=== PATIENT | female | born 1940 | race Caucasian/White ===

== ENCOUNTER 2025-02-02 05:54 | Emergency (ER) | payer OTHER, SELFPAY ==
[2025-02-02 06:03] VITALS: BP 116/74
[2025-02-02 06:20] VITALS: BMI 24.9
[2025-02-02 06:38] VITALS: BP 132/71
--- NOTE | 2025-02-02 06:39 | ED.GENMED ---
History of Present Illness
General
Chief Complaint: Heart Rate Problem
Time Seen by Provider: 02/02/25 06:20
History of Present Illness
History of Present Illness:
84-year-old female with history of hypertension presenting to the emergency department for palpitations. Patient reports that she woke up around 130 this morning, did not feel well felt some fluttering in her chest. Notes about 2 weeks ago she was
not feeling well, went to her primary care doctor who thought that she may have atrial fibrillation, however did not EKG and no evidence of atrial fibrillation. Patient denies any significant cardiac history. Denies chest pain or difficulty
breathing. Denies fever or recent illness. Notes that she has been feeling more exhausted and fatigued. Denies abdominal pain or GI complaints. Denies additional acute medical complaints
Past History
Past History
ED Past Medical History: HTN and Other (M�ni�re's disease, hiatal hernia)
ED Past Surgical History: Cholecystectomy and Gynecological
Social History
Tobacco: Non-smoker
Alcohol: None
Personal:
Living: with family
Family History
Family History: Negative Diabetes, Hypertension or CAD
Phy Exam
Physical Exam
Physical Exam:
General: Well-appearing, no clinical signs of dehydration, nontoxic and in no acute distress
HEENT: protecting airway
Neck: appears supple
CV: Normal heart rate, regular rhythm
Resp: No accessory muscle use, no increased work of breathing, lungs clear to auscultation bilaterally
Abd: No distention
Extremities: No deformities, no swelling, no erythema
Neuro: alert, no focal neurologic deficit
: deferred
Rectal: deferred
Psych: Normal affect
Skin: Intact
Course
Orders/Labs/Results
Orders:
Orders
02/02/25 06:11
Electrocardiogram (*1) Urgent
Reason for Study: Other
Other Reason for Exam: Respiratory Distress
Cardiac Monitoring- Treatment ONCE
EKG- Treatment ONCE
IV Insert/Care/Rem.- Treatment PRN
CR Chest - 2 Views Urgent
Comment:
Reason For Exam: respiratory distress
O2 Therapy [RESP] Urgent
Titrate/Wean O2 to maintain O2 sat greater than (%): 93
Special Instructions: TO MAINTAIN CONTINUOUS O2 SATS >/= 93%
Pulse Ox/cont/shift [RESP] Urgent
Quantity: 1
Special Instructions: continuous pulse ox
02/02/25 06:40
Complete Blood Count/With Diff Urgent
Comprehensive Metabolic Panel Urgent
NT-proBNP Urgent
Troponin I Urgent
Abnormal Lab Results
02/02/25
06:40
WBC 4.5 L 10^3/uL
(4.8-10.8)
MCH 31.1 H pg
(27.0-31.0)
Glucose 102 H mg/dl
(70-99)
Total Protein 6.0 L g/dl
(6.3-8.2)
02/02/25 06:40
02/02/25 06:40
Vital Signs
Initial and Last Documented VS:
Initial Vital Signs
Temp Pulse Resp BP Pulse Ox
97.8 F 77 20 116/74 99
02/02/25 06:03 02/02/25 06:03 02/02/25 06:03 02/02/25 06:03 02/02/25 06:03
Last Documented Vital Signs
Temp Pulse Resp BP Pulse Ox
97.8 F 61 12 111/69 96
02/02/25 06:03 02/02/25 07:30 02/02/25 07:30 02/02/25 07:00 02/02/25 07:30
MDM/Problems Addressed
MDM/Problems Addressed:
84-year-old female with past very of hypertension presenting for fluttering sensation in her chest. Vital signs on arrival are normal.
On exam, patient is resting comfortably, no acute distress, currently asymptomatic. EKG obtained on arrival, sinus rhythm with PACs. No evidence of A-fib or arrhythmia. Suspect that patient may be symptomatic from PACs. She is hemodynamically
stable. No signs of volume overload on exam without concern for CHF. No report of chest pain without concern for ACS, nonischemic EKG. Patient does note that she has been more fatigued as of recent. Will screen with laboratory analysis. Will
continue to monitor.
08:15 -Labs are unremarkable. Chest x-ray without acute cardiopulmonary disease. On reassessment patient remained stable. Feel stable for discharge, however given patient's presenting symptoms, feel warrants outpatient cardiology follow-up for
potential Holter monitoring. Return precautions discussed and patient verbalized understanding
*Pulse Oximetry
SaO2: 99
Oxygen Mode of Delivery: Room air
Patient hypoxic: no
*Critical Care Note
Total Time (30-74mins, 75-104mins- exclusive of procedures): Not Applicable
ED Attending Note
-
Portions of this chart may have been created with voice recognition software.� Occasional wrong word or��sound alike� substitutions may have occurred due to the inherent limitations of voice recognition software.
Discharge Plan
Departure
Patient Disposition: Home (Routine Discharge)
Date of Disposition: 02/02/25
Time of Disposition: 08:14
Patient with high blood pressure during this ER visit?: No
Condition: Good
Discharge Problem:
Heart palpitations
Instructions: Palpitations (DC)
Prescriptions:
No Action
ascorbic acid (vitamin C) [Vitamin C] 1,000 mg Tablet
1,000 mg PO DAILY
Acidophilus Tablet
1 tab PO DAILY
cranberry 500 mg Capsule
30,000 mg PO DAILY
valsartan 80 mg Tablet
80 mg PO DAILY
omeprazole 20 mg Capsule,Delayed Release(Dr/Ec)
20 mg PO DAILY
hydrochlorothiazide 25 mg Tablet
25 mg PO DAILY
sertraline 50 mg Tablet
50 mg PO DAILY
coenzyme Q10 [Co Q-10] 100 mg Capsule
100 mg PO DAILY
vitamin D77-rmosu acid 1,000-400 mcg Tablet, Sublingual
1 tab SUBLINGUAL DAILY
turmeric 400 mg Capsule
400 mg PO DAILY
Vitamin D3
1 tab PO DAILY
Referrals:
Gabriel Stone MD [Active, Cardiology]
Activity Restrictions/Additional Instructions:
You were seen in the emergency department for palpitations
You were found to have reassuring EKG and laboratory analysis. We recommend that you follow-up with a airconditioning drafting officer.
Please follow-up closely with your primary care physician.
Return to the emergency department for any worsening of your symptoms, or any development of chest pain, difficulty breathing, abdominal pain with persistent vomiting and inability to tolerate food or liquid by mouth (concern for dehydration),
weakness, headache or confusion, fever greater than 100.4, or any additional symptoms that are concerning to you.
Thank you for choosing [facility].
Interventions
Interventions:
*Risk Screen - Suicide Last Done: 02/02/25 06:03
*General Assessment Last Done: 02/02/25 06:03
*Neglect/Abuse Screening Last Done: 02/02/25 06:03
*ED- Fall Risk Assessment Last Done: 02/02/25 06:03
*ED COVID-19 Vaccine History Last Done: 02/02/25 06:03
ED- Cardiac Assessment Last Done: 02/02/25 06:15
ED- Pulmonary Assessment Last Done: 02/02/25 06:15
Discharge Date and Time
Print Language: ARMENIAN
[2025-02-02 07:00] VITALS: BP 111/69
[2025-02-02 07:04] LABS: % Basophils 0.4 % (0-2); % Eosinophils 1.3 % (0-6); % Immature Granulocytes 0.2 % (0-0.5); % Lymphocytes 28.7 % (20.5-51.1); % Monocytes 9.1 % (1.7-9.3); % Neutrophils 60.3 % (42.2-75.2); Absolute Eosinophils 0.1 10^3/uL (0-0.7); Absolute Lymphocytes 1.3 10^3/uL (1.2-3.4); Absolute Monocytes 0.4 10^3/uL (0.1-0.6); Absolute Neutrophils 2.7 10^3/uL (1.4-6.5); Hematocrit 42.9 % (37.0-47.0); Hemoglobin 14.8 g/dL (12.0-16.0); Mean Corp Hgb Conc. 34.5 g/dL (33.0-37.0); Mean Corpuscular Hgb 31.1 pg (27.0-31.0); Mean Corpuscular Volume 90.1 fL (81.0-99.0); Mean Platelet Volume 9.2 fL (7.4-10.4); Nucleated Red Blood Cells % 0 %; Platelet Count 154 10^3/uL (130-400); Red Blood Cell Count 4.76 10^6/uL (4.20-5.40); Red Cell Dist. Width 13.2 % (11.5-14.5); White Blood Cell Count 4.5 10^3/uL (4.8-10.8)
[2025-02-02 07:18] LABS: ALT (SGPT) 13 U/L (0-35); AST (SGOT) 20 U/L (14-36); Albumin 3.8 g/dl (3.5-5.0); Alkaline Phosphatase 44 U/L (38-126); Blood Urea Nitrogen 16 mg/dl (7-17); Carbon Dioxide 30 mmol/L (22-30); Chloride 107 mmol/L (98-107); Estimated Creatinine Clearance 40 ml/min; Glucose 102 mg/dl (70-99); Sodium 141 mmol/L (135-145); Total Bilirubin 0.9 mg/dl (0.2-1.3); eGFR > 60.00
[2025-02-02 07:30] LABS: NT-proBNP 721 pg/ml; Troponin I < 0.012 ng/ml
[2025-02-02 08:00] VITALS: BP 110/61
== END 2025-02-02 08:48 | disposition home or self-care (01) ==
LOC: EMR 05:54
PROVIDERS: Emergency Medicine; EMERGENCY PHYSICIAN Student in an Organized Health Care Education/Training Program; FAMILY PHYSICIAN Family Medicine
DX: R00.2 Palpitations (principal); I49.1 Atrial premature depolarization; I10 Essential (primary) hypertension; Z90.49 Acquired absence of other specified parts of digestive tract
CPT/HCPCS: 99285; 71046; 80053; 83880; 84484; 85025; 93005

== ENCOUNTER 2025-03-16 12:30 | Emergency (ER) | payer OTHER, SELFPAY ==
[2025-03-16] VITALS (18 sets, daily range): BP systolic 102–133; BP diastolic 51–91; BMI 24.1
[2025-03-16 18:50] LABS: Hematocrit 40.5 % (37.0-47.0); Hemoglobin 14.4 g/dL (12.0-16.0); Mean Corp Hgb Conc. 35.6 g/dL (33.0-37.0); Mean Corpuscular Volume 87.9 fL (81.0-99.0); Platelet Count 156 10^3/uL (130-400); Red Cell Dist. Width 13.2 % (11.5-14.5)
--- NOTE | 2025-03-16 19:09 | ED.GENMED ---
History of Present Illness
General
Chief Complaint: Dizziness
Source: patient and family
Time Seen by Provider: 03/16/25 13:00
History of Present Illness
History of Present Illness:
84-year-old female who suffered a fall described as stumbling while in the garden approximately 8 weeks ago. She did not have loss of consciousness and denies preceding symptoms to the fall such as chest pain or palpitations. She did note a mild
headache after the fall but this was resolved with 1 dose of [id number] pain medication. However, since that time, she has been noted to have increasing fatigue associated with dizziness. She describes the dizziness as 'not spinning', but
rather feeling kind of lightheaded and shaking her legs. She has not had any further falls since 8 weeks ago. She has been managed by her primary care doctor through the symptoms, and as recently as yesterday was advised to discontinue her
diuretic. She denies associated neck pain, visual changes, numbness, tingling, focal weakness, change in speech, change in vision, anorexia, nausea, vomiting, swelling, or other complaints patient does have an appointment for an outpatient MRI
which is scheduled but not yet performed.
Past History
Past History
ED Past Medical History: HTN and Other (M�ni�re's disease, hiatal hernia)
ED Past Surgical History: Cholecystectomy and Gynecological
Social History
Tobacco: Non-smoker
Alcohol: None
Drug: None
Personal:
Living: with family
Family History
Family History: Negative Diabetes, Hypertension or CAD
Phy Exam
Physical Exam
Physical Exam:
GENERAL: Alert , in no apparent distress
EYE: pupils equal and reactive, EOMI, no nystagmus, no photophobia
NECK: Supple, no significant adenopathy, no midline tenderness.
ENT: o/p clr, mmm.
CARDIAC: Regular rate and rhythm .
LUNGS: Clear breath sounds bilaterally, no acute respiratory distress, no wheezes/rales/rhonchi
ABDOMEN: Soft, without focal tenderness, no r/g, no cvat
NEUROLOGICAL: Alert and oriented, no focal neuro deficits, [id number], motor 5 out of 5, sensory intact, cranial nerves II through XII intact
SKIN: Warm and dry, skin intact.
MUSCULOSKELETAL: No edema, well perfused.
PSYCH: Normal and appropriate interaction.
Course
Orders/Labs/Results
Orders:
Orders
03/16/25 12:32
Electrocardiogram (*1) Urgent
Reason for Study: Vertigo / Dizzy
EKG- Treatment ONCE
03/16/25 18:33
CT Head W/o Iv Contrast Urgent
Comment:
Reason For Exam: dizzy
Cardiac Monitoring- Treatment ONCE
Pulse Ox/cont/shift [RESP] Stat
Quantity: 1
03/16/25 18:38
Complete Blood Count/No Diff Urgent
Comprehensive Metabolic Panel Urgent
Troponin I Urgent
03/16/25 18:40
Urinalysis Reflex To Culture Urgent
Date Specimen was Collected: 03/16/25
Time Specimen was Collected: 18:39
Urine Microscopic Reflex Cult Urgent
Abnormal Lab Results
03/16/25 03/16/25
18:38 18:40
MCH 31.2 H pg
(27.0-31.0)
Potassium 3.2 L mmol/L
(3.5-5.1)
Carbon Dioxide 31 H mmol/L
(22-30)
BUN 18 H mg/dl
(7-17)
Glucose 121 H mg/dl
(70-99)
Total Protein 5.9 L g/dl
(6.3-8.2)
Urine Bacteria (Reflex) Few A
(Negative)
Urine Albumin (Reflex) 1+ A
(Neg - Trace)
03/16/25 18:38
03/16/25 18:38
Vital Signs
Initial and Last Documented VS:
Initial Vital Signs
Temp Pulse Resp BP Pulse Ox
97.5 F 69 16 122/72 97
03/16/25 12:33 03/16/25 12:33 03/16/25 12:33 03/16/25 12:33 03/16/25 12:33
Last Documented Vital Signs
Temp Pulse Resp BP Pulse Ox
98 F 67 21 115/64 98
03/16/25 17:30 03/16/25 19:01 03/16/25 19:01 03/16/25 19:01 03/16/25 19:14
*Pulse Oximetry
SaO2: 98
Oxygen Mode of Delivery: Room air
Patient hypoxic: no
*Critical Care Note
Total Time (30-74mins, 75-104mins- exclusive of procedures): Not Applicable
Update Note
Update Note:
Patient presents to the Emergency Department with ___dizziness and fatigue
Number and Complexity of Problems Addressed at the Encounter
� Chronic conditions affecting care:
� Acute Exacerbation and/or Progression of Chronic Illness:
� Differential Diagnosis includes: But not limited to UTI, electrolyte disorder, subdural hematoma, etc.
Amount and/or Complexity of Data to be Reviewed and Analyzed
� I performed an independent evaluation of and my interpretation is:
EKG: Read by me, normal sinus rhythm, nonspecific T wave flattening, no acute ischemia
CT:head ct nad
Xrays:
Laboratory Studies: Generally unremarkable
Other:
� Review of other/old records reveals:
� Clinical information was obtained by an independent historian: Daughter who is bedside
� Prescriptions/Medications Considered but not given:
� Further testing considered but not performed:
Risk of Complications and/or Morbidity or Mortality of Patient Management
� Social determinants of health affecting care:
� Discussion with other providers (PCP, Hospitalists, Consultants, etc):
� Escalation of care including admission/observation vs risk of discharge considered: No specific etiology for symptoms of ongoing dizziness and episodes of confusion noted here. Patient is awake alert pleasant well-appearing.
Discussed with daughter who is at bedside importance of close follow-up and reasons return to the ER immediately.
ED Attending Note
-
Portions of this chart may have been created with voice recognition software.� Occasional wrong word or��sound alike� substitutions may have occurred due to the inherent limitations of voice recognition software.
Discharge Plan
Departure
Patient Disposition: Home (Routine Discharge)
Date of Disposition: 03/16/25
Time of Disposition: 21:22
Patient with high blood pressure during this ER visit?: Yes
Condition: Good
Discharge Problem:
Dizziness
Instructions: Dizziness, BLOOD PRESSURE
Prescriptions:
No Action
ascorbic acid (vitamin C) [Vitamin C] 1,000 mg Tablet
1,000 mg PO DAILY
Acidophilus Tablet
1 tab PO DAILY
cranberry 500 mg Capsule
30,000 mg PO DAILY
valsartan 80 mg Tablet
80 mg PO DAILY
omeprazole 20 mg Capsule,Delayed Release(Dr/Ec)
20 mg PO DAILY
hydrochlorothiazide 25 mg Tablet
25 mg PO DAILY
sertraline 50 mg Tablet
50 mg PO DAILY
coenzyme Q10 [Co Q-10] 100 mg Capsule
100 mg PO DAILY
vitamin I50-jtduv acid 1,000-400 mcg Tablet, Sublingual
1 tab SUBLINGUAL DAILY
turmeric 400 mg Capsule
400 mg PO DAILY
Vitamin D3
1 tab PO DAILY
Referrals:
Jose Luis Snell MD [Family Provider, Family Practice] - Follow up in 2-3 days
Activity Restrictions/Additional Instructions:
YOU WORKUP HERE WAS GENERALLY UNREMARKABLE TONIGHT. IS VERY IMPORTANT THAT YOU SEE YOUR DOCTOR IN CLOSE FOLLOW-UP TO FURTHER INVESTIGATE THE REASONS FOR YOUR DIZZINESS. IF YOU DEVELOP NUMBNESS, WEAKNESS OF AN ARM OR LEG, CHANGE IN SPEECH, CHANGE
IN VISION, SEVERE HEADACHE, NECK PAIN, OR OTHER WORRISOME SIGNS, PLEASE RETURN TO THE ER IMMEDIATELY!
Interventions
Interventions:
*Risk Screen - Suicide Last Done: 03/16/25 12:33
*General Assessment Last Done: 03/16/25 12:33
*Neglect/Abuse Screening Last Done: 03/16/25 12:33
*ED- Fall Risk Assessment Last Done: 03/16/25 13:33
ED- Neurological Assessment Last Done: 03/16/25 13:33
ED- Cardiac Assessment Last Done: 03/16/25 13:33
ED Swallowing Screen Last Done: 03/16/25 13:33
Discharge Date and Time
Print Language: KAZAKH
[2025-03-16 19:10] LABS: ALT (SGPT) 11 U/L (0-35); AST (SGOT) 18 U/L (14-36); Albumin 3.8 g/dl (3.5-5.0); Alkaline Phosphatase 42 U/L (38-126); Blood Urea Nitrogen 18 mg/dl (7-17); Calcium 10.0 mg/dl (8.4-10.2); Carbon Dioxide 31 mmol/L (22-30); Chloride 105 mmol/L (98-107); Estimated Creatinine Clearance 40 ml/min; Glucose 121 mg/dl (70-99); Potassium 3.2 mmol/L (3.5-5.1); Sodium 139 mmol/L (135-145); Total Protein 5.9 g/dl (6.3-8.2); eGFR > 60.00
[2025-03-16 19:22] LABS: Urine Character Clear (Clear)
[2025-03-16 19:23] LABS: Troponin I < 0.012 ng/ml
[2025-03-16 19:31] LABS: Urine Red Blood Cell 0-2 /HPF (0-2); Urine Squamous Cell >30 /LPF (Few)
== END 2025-03-16 21:57 | disposition home or self-care (01) ==
LOC: EMR 12:30
PROVIDERS: EMERGENCY PHYSICIAN Emergency Medicine; FAMILY PHYSICIAN Family Medicine
DX: R42 Dizziness and giddiness (principal); R41.0 Disorientation, unspecified; R53.83 Other fatigue; I10 Essential (primary) hypertension; K44.9 Diaphragmatic hernia without obstruction or gangrene; Z91.81 History of falling; Z90.49 Acquired absence of other specified parts of digestive tract; Z88.1 Allergy status to other antibiotic agents; Z88.0 Allergy status to penicillin; Z88.2 Allergy status to sulfonamides
CPT/HCPCS: 99285; 70450; 80053; 81003; 81015; 84484; 85027; 93005

== ENCOUNTER 2025-04-05 12:14 | Outpatient (RCR) | payer OTHER, SELFPAY | END 2025-04-05 23:59 | disposition home or self-care (01) | LOC: RPT 12:14 | PROVIDERS: ATTENDING PHYSICIAN Family Medicine | DX: R26.89 Other abnormalities of gait and mobility (principal); Z73.6 Limitation of activities due to disability; R42 Dizziness and giddiness; R53.83 Other fatigue; Z91.81 History of falling | CPT/HCPCS: 97110; 97162; 97530 ==

== ENCOUNTER 2025-04-09 21:57 | Observation (INO) | payer OTHER, SELFPAY ==
[2025-04-09] VITALS (12 sets, daily range): BP systolic 106–150; BP diastolic 57–81
[2025-04-09 16:50] LABS: Hematocrit 38.9 % (37.0-47.0); Hemoglobin 13.4 g/dL (12.0-16.0); Mean Corp Hgb Conc. 34.4 g/dL (33.0-37.0); Mean Corpuscular Volume 88.8 fL (81.0-99.0); Nucleated Red Blood Cells % 0 %; Platelet Count 159 10^3/uL (130-400); Red Cell Dist. Width 13.8 % (11.5-14.5)
--- NOTE | 2025-04-09 17:00 | ED.GENMED ---
History of Present Illness
General
Chief Complaint: Fainting/Passed Out
Source: patient
Exam Limitations: none
Time Seen by Provider: 04/09/25 16:19
Nursing documentation reviewed up to this point in time: agreed with
History of Present Illness
History of Present Illness:
84-year-old female past medical history of atrial fibrillation not currently anticoagulated hypertension presented to the emergency department after she had an episode where she was gardening felt lightheaded and fell to the ground does not have
memory of the fall specifically but woke up with some scrapes to the side of her face on the right side and some mild neck pain. Upon awakening she was able to crawl over to a bench set up and then came to the ER. She does have a loop recorder
currently in place from cardiology with concerns of intermittent palpitations potential paroxysmal atrial fibrillation. She denies any chest pain or palpitations associated with the episode today. No significant symptoms currently other than some
mild discomfort of the right side of her face. No numbness weakness abdominal pain.
Past History
Past History
ED Past Medical History: HTN and Other (M�ni�re's disease, hiatal hernia)
ED Past Surgical History: Cholecystectomy and Gynecological
Social History
Tobacco: Non-smoker
Alcohol: None
Drug: None
Personal:
Living: with family
Family History
Family History: Negative Diabetes, Hypertension or CAD
Review of Systems
Review of Systems
Allergies reviewed?: Yes
All Other Systems: ROS reviewed and negative except as documented in HPI and ROS
Phy Exam
Physical Exam
Physical Exam:
GENERAL: Alert , in no apparent distress
EYE: pupils equal and reactive normal extraocular movements
NECK: Supple, no significant adenopathy.
ENT: Superficial abrasions to the right side of the face, o/p clr, mmm.
CARDIAC: Regular rate and rhythm .
LUNGS: Clear breath sounds bilaterally, no acute respiratory distress, no wheezes/rales/rhonchi
ABDOMEN: Soft, without focal tenderness, no r/g, no cvat
NEUROLOGICAL: Alert and oriented, no focal neuro deficits
SKIN: Warm and dry, skin intact.
MUSCULOSKELETAL: No edema, well perfused.
PSYCH: Normal and appropriate interaction.
Course
Orders/Labs/Results
Orders:
Orders
04/09/25 15:53
ECG [Electrocardiogram (*1)] Urgent
Reason for Study: Syncope
EKG- Treatment ONCE
04/09/25 16:37
Complete Blood Count/With Diff Urgent
Comprehensive Metabolic Panel Urgent
Troponin I Urgent
04/09/25 16:39
CT Cervical Spine W/o Iv Contr Urgent
Comment:
Reason For Exam: fall right neck pain
CT Head W/o Iv Contrast Urgent
Comment:
Reason For Exam: fall hit right side of face
04/09/25 16:45
Chest [CR Chest - 2 Views ] Urgent
Comment:
Reason For Exam: cp after fall right side
04/09/25 20:18
Electrocardiogram (*1) Urgent
Reason for Study: Chest Pain
EKG- Treatment ONCE
04/09/25 20:27
Troponin I Urgent
04/09/25 20:37
Urinalysis Reflex To Culture Urgent
Date Specimen was Collected: 04/09/25
Time Specimen was Collected: 20:35
Urine Microscopic Reflex Cult Urgent
Urine Culture Urgent
MARCO Source: U
Specimen Description:
Date Specimen was Collected: 04/09/25
Time Specimen was Collected: 20:35
04/09/25 20:41
Acetaminophen [Tylenol] 1,000 mg .ROUTE .STK-MED ONE
04/09/25 20:46
Acetaminophen [Tylenol] 1,000 mg PO NOW STA
Abnormal Lab Results
04/09/25 04/09/25
16:37 20:37
Absolute Lymphs (auto) 1.0 L 10^3/uL
(1.2-3.4)
Immature Gran % 0.6 H %
(0-0.5)
Neutrophils % 77.2 H %
(42.2-75.2)
Lymphocytes % 14.8 L %
(20.5-51.1)
BUN 18 H mg/dl
(7-17)
Leukocyte Esterase Rfl 1+ A
(Negative)
Urine Bacteria (Reflex) Moderate A
(Negative)
04/09/25 16:37
04/09/25 16:37
Vital Signs
Initial and Last Documented VS:
Initial Vital Signs
Temp Pulse Resp BP Pulse Ox
98.1 F 73 18 142/75 97
04/09/25 15:49 04/09/25 15:49 04/09/25 15:49 04/09/25 15:49 04/09/25 15:49
Last Documented Vital Signs
Temp Pulse Resp BP Pulse Ox
98.1 F 67 21 129/70 99
04/09/25 15:49 04/09/25 20:45 04/09/25 20:45 04/09/25 20:00 04/09/25 20:45
MDM/Problems Addressed
MDM/Problems Addressed:
84-year-old female presenting to the emergency department today after an episode where she passed out fell to the ground and injured her right side of the face. Denies any associated chest pain or palpitations. On arrival here vital signs are
normal patient in no distress. Initial workup without emergent findings some subtle nonspecific changes to patient's EKG. Head and neck CT without emergent findings did show thyroid nodule which she was notified of and advised for close the
patient follow-up for. Case discussed with cardiology who assessed the patient recommended echo. Plan to admit for further monitoring and further assessment tomorrow.
*Pulse Oximetry
SaO2: 98
Oxygen Mode of Delivery: Room air
Patient hypoxic: no (99)
*Critical Care Note
Total Time (30-74mins, 75-104mins- exclusive of procedures): Not Applicable
ED Attending Note
-
Portions of this chart may have been created with voice recognition software.� Occasional wrong word or��sound alike� substitutions may have occurred due to the inherent limitations of voice recognition software.
Discharge Plan
Departure
Patient Disposition: Admit
Date of Disposition: 04/09/25
Time of Disposition: 21:11
Admit to: Telemetry
Admit to doctor: Camilla
Presentation/result/management discussed w/ accepting MD/DO: Hospitalist
Patient with high blood pressure during this ER visit?: No
Condition: Good
Covid-19: Not Applicable
Discharge Problem:
Syncope
Prescriptions:
No Action
ascorbic acid (vitamin C) [Vitamin C] 1,000 mg Tablet
1,000 mg PO DAILY
Acidophilus Tablet
1 tab PO DAILY
cranberry 500 mg Capsule
30,000 mg PO DAILY
valsartan 80 mg Tablet
80 mg PO DAILY
omeprazole 20 mg Capsule,Delayed Release(Dr/Ec)
20 mg PO DAILY
sertraline 50 mg Tablet
50 mg PO DAILY
coenzyme Q10 [Co Q-10] 100 mg Capsule
100 mg PO DAILY
vitamin Y56-swvig acid 1,000-400 mcg Tablet, Sublingual
1 tab SUBLINGUAL DAILY
turmeric 400 mg Capsule
400 mg PO DAILY
Vitamin D3
1 tab PO DAILY
Referrals:
Jose Luis Snell MD [Family Provider, Family Practice]
Interventions
Interventions:
*Risk Screen - Suicide Last Done: 04/09/25 15:49
*General Assessment Last Done: 04/09/25 15:49
*Neglect/Abuse Screening Last Done: 04/09/25 16:19
*ED- Fall Risk Assessment Last Done: 04/09/25 16:19
*ED COVID-19 Vaccine History Last Done: 04/09/25 16:31
ED- Cardiac Assessment Last Done: 04/09/25 16:27
ED- Neurological Assessment Last Done: 04/09/25 16:27
Discharge Date and Time
Print Language: MALDIVIAN
[2025-04-09 17:07] LABS: ALT (SGPT) 19 U/L (0-35); AST (SGOT) 30 U/L (14-36); Albumin 4.1 g/dl (3.5-5.0); Alkaline Phosphatase 57 U/L (38-126); Blood Urea Nitrogen 18 mg/dl (7-17); Calcium 10.0 mg/dl (8.4-10.2); Carbon Dioxide 28 mmol/L (22-30); Chloride 105 mmol/L (98-107); Estimated Creatinine Clearance 45 ml/min; Glucose 97 mg/dl (70-99); Potassium 4.2 mmol/L (3.5-5.1); Sodium 137 mmol/L (135-145); Total Protein 6.3 g/dl (6.3-8.2); eGFR > 60.00
[2025-04-09 17:09] LABS: Troponin I < 0.012 ng/ml
--- NOTE | 2025-04-09 18:44 | CON.CAR ---
Consultation
Consultation Request
Date/Time Consultation Requested: 04/09/2025 at 1715
Date/Time Consultation Performed: 04/09/2025 at 1800
Requesting Provider: Eric Gray
Performing Provider: Benoit Diaz MD
Reason for Consultation: Syncope
Medical History
-
Chief Complaint: Syncope
History of Present Illness:
Primary physician: Abelardo Snell
Pathology Secretary/Transcriptionist: Tyron Santos
84-year-old woman who has a 1 year history of intermittent palpitations with dizziness and fatigue. She was seen by Dr. Santos in initial consultation on April 03. She reports palpitations that occur intermittently. For the last year or so, she
has been experiencing 'dizziness' which is a lightheadedness that occurs only with standing. She says it happens perhaps twice a week. She takes her valsartan in the morning. On the day of admission, she was outside gardening. She was pulling
weeds. She ate breakfast around 930. It was 230 when she stood up to get a long bath. Her daughter, with whom she lives heard a thump but thought nothing of it. About 20 minutes later the patient returned to the house to go to the bathroom where
she had right facial trauma. She was brought to the emergency department. CT of the head was negative. CT of the cervical spine showed only a thyroid nodule. She had never had true syncope prior to this but had a fall roughly 2 months ago
without loss of consciousness. She denied other cardiac symptoms. In 2015 she had a cardiac catheterization showing no obstructive CAD, normal stress echo with normal LV function and a monitor that did not show significant arrhythmia. At the time
of her evaluation on April 03 for 7-day [employer] monitor was applied. She was wearing her monitor when she had her syncopal episode. An echocardiogram was ordered. Recent outpatient laboratory testing was normal including a normal TSH and
magnesium. Potassium was 3.2. An outpatient EKG showed sinus bradycardia rate 63 with nonspecific T wave changes. Of note, she was seen in the emergency department in January for palpitations and her evaluation was unremarkable. She was seen again
after her fall which also occurred in the garden. In this timeframe, her diuretic had been stopped.
Past Medical History
Past Medical History: Arrhythmias (Palpitations without a diagnosis of atrial fibrillation), GERD, HTN, Hypercholesterolemia, Psychiatric (History of depression) and Other (Thoracic aortic atherosclerosis, CKD stage III AAA, Raynaud's, many years)
Past Surgical History: Cholecystectomy and Gynecological (Hysterectomy)
Social History
Tobacco: Non-Smoker
Alcohol: None
Drug: None
Personal:
Living: With Family
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
Family History
Family History: Reviewed & Not Pertinent
Allergies / Home Medications
Allergy/AdvReac Type Severity Reaction Status Date / Time
Penicillins Allergy Unknown Unknown Verified 04/09/25 15:51
Sulfa (Sulfonamide Allergy Unknown Unknown Verified 04/09/25 15:51
Antibiotics)
mycins Allergy Unknown Uncoded 04/09/25 15:51
�Medication �Instructions �Recorded �Confirmed �Type
Lactobacillus acidophilus 1 tab PO DAILY 02/02/25 04/09/25 History
Vitamin D3 1 tab PO DAILY 02/02/25 04/09/25 History
ascorbic acid (vitamin C) 1,000 mg 1,000 mg PO DAILY 02/02/25 04/09/25 History
tablet (Vitamin C)
coenzyme Q10 100 mg capsule (Co 100 mg PO DAILY 02/02/25 04/09/25 History
Q-10)
cranberry 500 mg capsule 30,000 mg PO DAILY 02/02/25 04/09/25 History
omeprazole 20 mg capsule,delayed 20 mg PO DAILY 02/02/25 04/09/25 History
release
sertraline 50 mg tablet 50 mg PO DAILY 02/02/25 04/09/25 History
turmeric 400 mg capsule 400 mg PO DAILY 02/02/25 04/09/25 History
valsartan 80 mg tablet 80 mg PO DAILY 02/02/25 04/09/25 History
vitamin B12 1,000 mcg-folic acid 1 tab sublingual DAILY 02/02/25 04/09/25 History
400 mcg sublingual tablet
Review of Systems
-
All other systems: Negative unless noted
Physical Exam
Vital Signs
Temp Pulse Resp BP Pulse Ox
36.7 C 67 15 130/73 98
04/09/25 15:49 04/09/25 17:15 04/09/25 17:15 04/09/25 17:00 04/09/25 18:10
Lab Results
04/09/25 16:37
04/09/25 16:37
Troponin I < 0.012 ng/ml 04/09/25 16:37
Physical Exam
General: Other (Pleasant woman with right periorbital, maxillary, and temporal abrasions and superficial lacerations)
HEENT: Other (Lacerations as above)
Respiratory: Clear
Cardiac: Regular Rhythm and Other (No murmurs)
GI: Soft and Non Tender
Musculoskeletal: Edema (Pulses are palpable)
Neuro: AO x 3
Psych: Calm
Impression / Plan
-
Impression:
Syncope, orthostatic versus arrhythmic
Palpitations
Hypertension
Hypercholesterolemia
History of depression
Aortic atherosclerosis
Raynaud's
CKD 3 A
Plan:
She presents with symptoms of palpitations and also symptoms that could be compatible with orthostatic hypotension. Paroxysmal atrial fibrillation, bradycardia arrhythmias, vagal mechanisms could also possibly explain her presentation.
This is her first true syncopal episode with modest closed head injury
Will check orthostatic vital signs. She may need changes in her antihypertensive regimen.
She was wearing her monitor at the time of her episode. We will download her rhythm during this episode which should clarify whether or not this was arrhythmic.
If no evidence of orthostasis or arrhythmia, etc. consider evaluation for vestibular or cerebellar causes of dizziness.
Check echocardiogram.
Data Reviewed
-
EKG: Tracing Personally Visualized and interpreted (Normal sinus rhythm,Sinus arrhythmia, nonspecific ST and T changes)
Radiology: Image Personally Visualized and interpreted (Chest x-ray with NAD)
CT Scan: Report Reviewed by me (Head CT with mild atrophy and periventricular small vessel disease)
Medical Tests (Nuc Med, Echo etc): Report Reviewed by me (Echo, monitor, cath CT of cervical spine large left thyroid nodule)
Labs: Labs Reviewed by me (White count 7, hemoglobin 13.4, BUN/creatinine 18 and 0.8, potassium 4.2, negative troponin)
Old Records: Reviewed
[2025-04-09 20:47] LABS: Urine Character Clear (Clear)
[2025-04-09] MEDS: TYLENOL 1000 MG PO (20:47)
--- NOTE | 2025-04-09 20:56 | HPS.HSE ---
Family Physician
-
Family Physician: Jose Luis Snell
Chief Complaint
-
Syncopal episode
History of Present Illness
This is a 84-year-old female with past medical history significant for hypertension, depression who presents to the emergency department with a syncopal episode.
Patient has fairly standing history of dizziness and over the last few months she has been seen in the emergency department for episodes of dizziness and palpitations. A few years ago she was evaluated for chest pain and had a nonobstructive
coronaries on cardiac cath. She said she had a possible syncopal episode about a month ago. Over the last few days she reports having palpitations which she describes as fluttering that wakes her up from sleep. It will cause fairly frequently but
not every night. She reports that she feels dizzy when she gets up and when she is walking. She describes his dizziness as a cloudy and lightheaded sensation but no vertigo. She denies any weakness or tingling. She denies any numbness.
Today she reported that she was seen yet pulling weeds in the afternoon. She said she was getting up to put the weights in a bag when she passed out. She felt a sensation of passing out coming but she did not remember exactly when she passed out.
Family members had a thump but they did not witness the syncopal episode. When they came to see she was up and communicative in normal mental status. There was no loss of bladder or bowel continence. There was no postictal depression. She had no
focal deficits.
Family reports decreased appetite but patient reports that she drinks fairly well. She denies any recent diarrhea. She denies any recent episodes of melena or medic easier.
She had been seen by cardiology few days ago and had a monitor placed which she was wearing during the syncopal episode. Her last echo which was a stress echo showed an EF of 55%. She denies any history of valvular disease.
In the emergency Department she was afebrile, blood pressure was 130/78 pulse rate was 67 and she was satting 99% on room air. ECG shows normal sinus rhythm, rate 70, no ectopy, no ST or T wave changes and no interval lab abnormalities.
CBC was unremarkable, electrolytes BUN/creatinine within the normal range, UA is pending.
Chest x-ray was clear. CT of the head was negative, CT of the C-spine shows no acute trauma suggest fracture or dislocation or subluxation.
Medical History
Past Medical History
Past Medical History: Reports Hypercholesterolemia and Other (History of atrial arrhythmia, hiatal hernia, recurrent palpitation)
Additional Past Medical History:
Past Surgical History: Reports Cholecystectomy and Gynocological (Total abdominal hysterectomy)
Social History
Tobacco: Non-smoker
Alcohol: None
Drug: None
Personal:
Living: With Family
Employment: Retired
Family History
Family History: Not pertinent
Allergies / Home Medications
Allergies reflects when Allergies were last updated in [facility].
Home Medications with original date entered in [facility]
Allergy/Medication List:
Allergies
Allergy/AdvReac Type Severity Reaction Status Date / Time
Penicillins Allergy Unknown Unknown Verified 04/09/25 15:51
Sulfa (Sulfonamide Allergy Unknown Unknown Verified 04/09/25 15:51
Antibiotics)
mycins Allergy Unknown Uncoded 04/09/25 15:51
Home Medications
Lactobacillus acidophilus 1 tab PO DAILY 02/02/25
Vitamin D3 1 tab PO DAILY 02/02/25
ascorbic acid (vitamin C) 1,000 mg tablet (Vitamin C) 1,000 mg PO DAILY 02/02/25
coenzyme Q10 100 mg capsule (Co Q-10) 100 mg PO DAILY 02/02/25
cranberry 500 mg capsule 30,000 mg PO DAILY 02/02/25
omeprazole 20 mg capsule,delayed release 20 mg PO DAILY 02/02/25
sertraline 50 mg tablet 50 mg PO DAILY 02/02/25
turmeric 400 mg capsule 400 mg PO DAILY 02/02/25
valsartan 80 mg tablet 80 mg PO DAILY 02/02/25
vitamin B12 1,000 mcg-folic acid 400 mcg sublingual tablet 1 tab sublingual DAILY 02/02/25
Review of Systems
-
Constitutional: Reports No Symptoms
EENT: Reports No Symptoms
Respiratory: Reports No Symptoms
Cardiac: Reports Palpitations and Syncope
Abdomen/GI: Reports No Symptoms
: Reports No Symptoms
Musculoskeletal: Reports No Symptoms
Skin: Reports No Symptoms
Neurological: Reports No Symptoms
Endocrine: Reports No Symptoms
Hematologic/Lymphatic: Reports No Symptoms
Psych: Reports No Symptoms
Physical Exam
Vital Signs
Vital Signs
Temp Pulse Resp BP Pulse Ox
98.1 F 67 21 129/70 99
04/09/25 15:49 04/09/25 20:45 04/09/25 20:45 04/09/25 20:00 04/09/25 20:45
Physical Exam
General: Well Developed, Well Nourished and No Apparent Distress
HEENT: Moist mucous membranes, Atraumatic and Other (She has multiple minor excoriations/scrapes and bruises on the right forehead maxillary and mandibular region. None required stitches)
Respiratory: Clear
Cardiac: S1/S2 and Regular Rhythm; No Murmur or Rub
GI: Soft, Non Tender, Non Distended and Normal Bowel Sounds; No Organomegaly
Rectal: Deferred by Provider
Genito-urinary: Deferred by me
Musculoskeletal: No Clubbing, No Cyanosis and No Edema
Skin: No Rash
Neuro: Nonfocal/grossly intact
Psych: Calm
Laboratory Results
-
04/09/25 16:37
04/09/25 16:37
Laboratory Results
Total Bilirubin 1.0 mg/dl (0.2-1.3) 04/09/25 16:37
AST 30 U/L (14-36) 04/09/25 16:37
ALT 19 U/L (0-35) 04/09/25 16:37
Alkaline Phosphatase 57 U/L (38-126) 04/09/25 16:37
Troponin I < 0.012 ng/ml 04/09/25 16:37
Data Reviewed
-
CT Scan: Report Reviewed by me
Medical Tests (Nuc Med, Echo, EKG etc): Image Personally Visualized and interpreted
Lab Data: Labs Reviewed by me
Old Records: Reviewed
Impression/Plan
-
IMPRESSION:
This is a 84-year-old female with past medical history of GERD, hypertension and recurrent episodes of dizziness while standing and separately palpitations while laying in bed who presents to the emergency department with a syncopal episode in the
setting of about 1 month of increased palpitations that 2 weeks out from sleep as well as dizziness with ambulation or standing. Initial workup in the ED shows a normal sinus rhythm without ischemic findings on ECG without any ectopy, she has
normal labs and negative troponin x 2. U/A is negative. No focal deficits suggestive of acute CVA. CT head negative for stroke or bleed.
PLAN:
Syncope -
- admit to telemetry observation
- interrogation of monitoring device per cardiology
- telemetry x 24 hours
- echo in am
- tsh/free t4
- suspect element of orthostatics, daily orthostatics for now, if orthostatic cut down valsartan given sustained weight loss since starting medication. Her HCTZ was recently discontinued
- no further trop trending
- if cardiac eval negative for consider imaging w/ mri for cerebellar dizziness or central vertigo though these seem less likely
- cardiology consulted and following
DVT PPX - lovenox sq
Code status - Full Code
[2025-04-09 21:04] LABS: Urine Red Blood Cell 0-2 /HPF (0-2); Urine Squamous Cell >30 /LPF (Few)
[2025-04-09 21:14] LABS: Troponin I < 0.012 ng/ml
--- NOTE | 2025-04-09 22:20 | PTCARENOTE ---
Pt arrived from ED via stretcher, oob x1 assist to bed. aaox3, cooperative, c/o mild dizziness while ambulating. Pt states 'I feel ok.' oriented to room. call [place] within reach.
--- NOTE | 2025-04-09 23:32 | PTCARENOTE ---
Assumed care of patient from previous RN. Patient recently just admitted from ED. Alert and oriented, no complaints at this time. Resting comfortably in bed. DNR band applied. Patient has slight amount of scratches to right side of face - CHALO, no
drainage. Verified on satellite project site monitor #10 - NSR, Holter monitor from pre-hospital in place. Call [place] is in reach. Will monitor.
[2025-04-10] VITALS (7 sets, daily range): BP systolic 103–155; BP diastolic 51–82; PULSE 60–75; BMI 23.7
[2025-04-10 06:49] LABS: Hematocrit 38.2 % (37.0-47.0); Hemoglobin 12.8 g/dL (12.0-16.0); Mean Corp Hgb Conc. 33.5 g/dL (33.0-37.0); Mean Corpuscular Volume 91.2 fL (81.0-99.0); Platelet Count 147 10^3/uL (130-400); Red Cell Dist. Width 13.9 % (11.5-14.5)
[2025-04-10 06:59] LABS: Blood Urea Nitrogen 16 mg/dl (7-17); Calcium 10.1 mg/dl (8.4-10.2); Carbon Dioxide 30 mmol/L (22-30); Chloride 108 mmol/L (98-107); Estimated Creatinine Clearance 45 ml/min; Glucose 97 mg/dl (70-99); Magnesium 2.2 mg/dl (1.6-2.3); Potassium 4.2 mmol/L (3.5-5.1); Sodium 141 mmol/L (135-145); eGFR > 60.00
[2025-04-10 07:31] LABS: TSH 2.04 uIU/ml (0.47-4.68)
[2025-04-10] MEDS: DIOVAN 80 MG PO (07:48)
[2025-04-10] MEDS: VISBIOME 1 CAP PO (07:48)
[2025-04-10] MEDS: TYLENOL 650 MG PO ×3 (07:48→19:28)
[2025-04-10] MEDS: ZOLOFT 50 MG PO (07:49)
[2025-04-10] MEDS: PROTONIX 40 MG PO (07:49)
--- NOTE | 2025-04-10 09:27 | PTOTSP ---
Pt is ambulating independently without an assistive device. No acute PT needs were identified. PT will sign off.
--- NOTE | 2025-04-10 09:29 | W.PN.HOSP.TC ---
Today's Communication/Plan
-
echo
heart monitor
Assessment / Plan
Assessment / Plan
Physical Exam
General: Well Developed, Well Nourished and No Apparent Distress
HEENT: Moist mucous membranes, Atraumatic and Other (She has multiple minor excoriations/scrapes and bruises on the right forehead maxillary and mandibular region. None required stitches)
Respiratory: Clear
Cardiac: S1/S2 and Regular Rhythm; No Murmur or Rub
GI: Soft, Non Tender, Non Distended and Normal Bowel Sounds; No Organomegaly
Rectal: Deferred by Provider
Genito-urinary: Deferred by me
Musculoskeletal: No Clubbing, No Cyanosis and No Edema
Skin: No Rash
Neuro: Nonfocal/grossly intact
Psych: Calm
This is a 84-year-old female with past medical history of GERD, hypertension and recurrent episodes of dizziness while standing and separately palpitations while laying in bed who presents to the emergency department with a syncopal episode in the
setting of about 1 month of increased palpitations that 2 weeks out from sleep as well as dizziness with ambulation or standing. Initial workup in the ED shows a normal sinus rhythm without ischemic findings on ECG without any ectopy, she has
normal labs and negative troponin x 2. U/A is negative. No focal deficits suggestive of acute CVA. CT head negative for stroke or bleed.
PLAN:
Syncope -
She reported that she was working in the garden when it happened suddenly
Await interrogation of the heart monitoring device per cardiology
- telemetry
- echo in am
- tsh/free t4
Troponin is negative
No leukocytosis. No fever. CT head, no acute findings
Follow-up with cardiology recommendation
# Right-sided skin abrasion/bruising. As needed Tylenol. No blurred vision.
DVT PPX - lovenox sq
Code status - Full Code
Total time spent to see the patient, examine the patient, review data and lab results, discuss treatment plan with patient, nursing staff around 55 minutes�
Anticipated Discharge: 24 - 48 hours
Subjective/Interval History
-
Date of Service: April 10, 2025
No chest pain
No sob
No fever
Objective Data
-
Labs:
Laboratory Results
04/10/25
05:36
WBC 4.6 L
Hgb 12.8
Hct 38.2
Plt Count 147
Sodium 141
Potassium 4.2
Chloride 108 H
Carbon Dioxide 30
BUN 16
Creatinine 0.8
Glucose 97
Calcium 10.1
Vital Signs:
Vital Signs
Temp Pulse Resp BP Pulse Ox
98.4 F 59 17 127/69 99
04/10/25 07:15 04/10/25 07:48 04/10/25 07:15 04/10/25 07:48 04/10/25 07:15
--- NOTE | 2025-04-10 12:45 | W.PN.CARDCBS ---
Today's Communication / Plan
-
Orthostatic vitals
BP stable on current medical therapy
Monitor on telemetry
Echo
Impression / Plan
-
Impression:
Syncope, orthostatic versus arrhythmic
Palpitations
Thyroid nodule, defer to primary service
Hypertension
Hypercholesterolemia
History of depression
Aortic atherosclerosis
Raynaud's
CKD 3 A
Plan:
She presents with symptoms of palpitations and also symptoms that could be compatible with orthostatic hypotension. Paroxysmal atrial fibrillation, bradycardia arrhythmias, vagal mechanisms could also possibly explain her presentation.
This is her first true syncopal episode with modest closed head injury
No evidence of arrhythmias at this time, telemetry is demonstrated sinus rhythm without bradycardia or tachyarrhythmias
She was wearing her monitor at the time of her episode. Patient provide her device on 04/11/2025 which we will be able to download in office
Echocardiogram pending
In discussion with patient and her son, etiology in favor of vasovagal versus orthostasis however consider further evaluation with vestibular or cerebellar causes for her dizziness/syncope
Monitor on telemetry
Discussed with family
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
Subjective
Date of Service: April 10, 2025
Patient seen and examined. No acute events overnight. Patient resting comfortably in bed. Patient Nu[place] any chest pain, shortness of breath, palpitations, lightheadedness dizziness or weakness.
Objective
Labs:
04/10/25 05:36
04/10/25 05:36
Labs
Hgb 12.8 g/dL (12.0-16.0) 04/10/25 05:36
Hct 38.2 % (37.0-47.0) 04/10/25 05:36
Plt Count 147 10^3/uL (130-400) 04/10/25 05:36
Sodium 141 mmol/L (135-145) 04/10/25 05:36
Potassium 4.2 mmol/L (3.5-5.1) 04/10/25 05:36
BUN 16 mg/dl (7-17) 04/10/25 05:36
Creatinine 0.8 mg/dL (0.6-1.0) 04/10/25 05:36
Glucose 97 mg/dl (70-99) 04/10/25 05:36
Troponins
04/09/25 04/09/25
16:37 20:27
Troponin I < 0.012 < 0.012
Vital Signs and I&O:
Vital Signs
Temp Pulse Resp BP Pulse Ox
97.5 F 63 16 127/56 97
04/10/25 10:56 04/10/25 10:56 04/10/25 10:56 04/10/25 10:56 04/10/25 10:56
Vital Signs
Temp Pulse Resp BP Pulse Ox
97.5 F 63 16 127/56 97
04/10/25 10:56 04/10/25 10:56 04/10/25 10:56 04/10/25 10:56 04/10/25 10:56
Physical Exam
Physical Exam
GENERAL: no acute distress
EYE: sclera anicteric
NECK: Supple, no JVD, no carotid bruit appreciated
ENT: normal nose, moist mucosal membranes
CARDIAC: Regular rate and rhythm, +S1/S2, no murmur, rubs, or gallops
CHEST/PULMONARY: Normal effort, clear breath sounds
ABDOMEN: Soft, without focal tenderness or distention
NEUROLOGICAL: Alert and oriented x3
SKIN: Warm and dry, no rash; right facial ecchymosis
PSYCH: Normal and appropriate interaction.
Telemetry shows sinus rhythm
[2025-04-10] MEDS: LOVENOX 40 MG SC (18:03)
[2025-04-11 03:34] VITALS: BP 129/61
[2025-04-11 07:29] VITALS: BP 135/74
[2025-04-11] MEDS: VISBIOME 1 CAP PO (07:43)
[2025-04-11] MEDS: DIOVAN 80 MG PO (07:43)
[2025-04-11] MEDS: TYLENOL 650 MG PO ×2 (07:44→13:18)
[2025-04-11] MEDS: PROTONIX 40 MG PO (07:44)
[2025-04-11] MEDS: ZOLOFT 50 MG PO (07:44)
--- NOTE | 2025-04-11 07:45 | W.PN.CARDCBS ---
Addendum entered and electronically signed by Rahul Childs DO 04/11/25 10:55:
I saw and examined the patient.
The [employer] Utility Worker's note was reviewed and I agree with the note.
Comment:
Plan:
Monitor removed today for review
Echo pending
HR and bp improved.
Discussed conservative measures including proper hydration, avoiding prolonged sitting and standing
Will arrange outpt follow up.
If echo stable, will sign off
Original Note:
Today's Communication / Plan
-
echo today
download outpt monitor results
Impression / Plan
-
PCP:Jose Luis Snell
Primary regulatory and compliance technician:Dr Santos
Impression:
Syncope, orthostatic versus arrhythmic
Palpitations
Thyroid nodule, defer to primary service
Hypertension
Hypercholesterolemia
History of depression
Aortic atherosclerosis
Raynaud's
CKD 3 A
Previous cardiovascular testing:
Stress echo 2016: Normal
Cath 11/2015: No significant CAD, EF 60%
Holter monitor 2016, 48-hour: Normal sinus rhythm, no heart block, pauses, A-fib, or SVT
Plan:
Syncope
-presents with palpitations and also symptoms that could be compatible with orthostatic hypotension. PTO with 1 yr h/o dizziness on standing. Other potential differentials: paroxysmal atrial fibrillation, bradycardia arrhythmias, vagal mechanisms
-This is her first true syncopal episode with modest closed head injury
-no syncope, lightheadedness since admission
-telemetry personally reviewed: NSR 60-80s
-I removed outpatient CAM monitor and will bring to office for download. She was wearing monitor at time of episode on 04/09/2025
-Echocardiogram pending
-TSH WNL
-In previous discussion with patient and her son, etiology in favor of vasovagal versus orthostasis however consider further evaluation with vestibular or cerebellar causes for her dizziness/syncope
Progress Note - Chief Service Observer
Subjective
Date of Service: April 11, 2025
feels well
no LH, dizziness, syncope
Objective
Labs:
04/10/25 05:36
04/10/25 05:36
Labs
Hgb 12.8 g/dL (12.0-16.0) 04/10/25 05:36
Hct 38.2 % (37.0-47.0) 04/10/25 05:36
Plt Count 147 10^3/uL (130-400) 04/10/25 05:36
Sodium 141 mmol/L (135-145) 04/10/25 05:36
Potassium 4.2 mmol/L (3.5-5.1) 04/10/25 05:36
BUN 16 mg/dl (7-17) 04/10/25 05:36
Creatinine 0.8 mg/dL (0.6-1.0) 04/10/25 05:36
Glucose 97 mg/dl (70-99) 04/10/25 05:36
Troponins
04/09/25 04/09/25
16:37 20:27
Troponin I < 0.012 < 0.012
Vital Signs and I&O:
Vital Signs
Temp Pulse Resp BP Pulse Ox
97.7 F 67 16 135/74 99
04/11/25 07:29 04/11/25 07:29 04/11/25 07:29 04/11/25 07:29 04/11/25 07:29
Vital Signs
Temp Pulse Resp BP Pulse Ox
97.7 F 67 16 135/74 99
04/11/25 07:29 04/11/25 07:29 04/11/25 07:29 04/11/25 07:29 04/11/25 07:29
Intake & Output
04/09/25 04/10/25 04/11/25 04/12/25
06:59 06:59 06:59 06:59
Intake Total 240 / 240
Balance 240 / 240
Physical Exam
Physical Exam
GEN: No distress, awake, Ox3
HEENT: supple, anicteric, mmm
LUNGS: CTA, no wheezes/rales
CV: Reg, S1/S2, no murmur
ABD: soft, BS+, NT/ND
EXT: No edema
NEURO: Gross non-focal
SKIN: No rash
[2025-04-11 08:57] VITALS: BP 136/62; PULSE 62; O2SAT 95
--- NOTE | 2025-04-11 09:14 | W.PN.HOSP.TC ---
Today's Communication/Plan
-
dc if ok with cardiology, await echo
Assessment / Plan
Assessment / Plan
Physical Exam
General: Well Developed, Well Nourished and No Apparent Distress
HEENT: Moist mucous membranes, Atraumatic and Other (She has multiple minor excoriations/scrapes and bruises on the right forehead maxillary and mandibular region. None required stitches)
Respiratory: Clear
Cardiac: S1/S2 and Regular Rhythm; No Murmur or Rub
GI: Soft, Non Tender, Non Distended and Normal Bowel Sounds; No Organomegaly
Rectal:No bleeding
Genito-urinary: Deferred by me
Musculoskeletal: No Clubbing, No Cyanosis and No Edema
Skin: No Rash
Neuro: Nonfocal/grossly intact
Psych: Calm
This is a 84-year-old female with past medical history of GERD, hypertension and recurrent episodes of dizziness while standing and separately palpitations while laying in bed who presents to the emergency department with a syncopal episode in the
setting of about 1 month of increased palpitations that 2 weeks out from sleep as well as dizziness with ambulation or standing. Initial workup in the ED shows a normal sinus rhythm without ischemic findings on ECG without any ectopy, she has
normal labs and negative troponin x 2. U/A is negative. No focal deficits suggestive of acute CVA. CT head negative for stroke or bleed.
PLAN:
Syncope -
She reported that she was working in the garden when it happened suddenly
per cardiology: seems c/w vasovagal
- telemetry
- echo today
- tsh/free t4
Troponin is negative
No leukocytosis. No fever. CT head, no acute findings
Follow-up with cardiology recommendation
# Right-sided skin abrasion/bruising. As needed Tylenol. No blurred vision.
DVT PPX - lovenox sq
Code status - Full Code
Total discharge time spent to see the patient, examine the patient, review data and lab results, discuss discharge plan with patient, nursing staff around 65 minutes�
Anticipated Discharge: Today
Subjective/Interval History
-
Date of Service: April 11, 2025
no worsening headache
no blurred vision
Objective Data
-
Vital Signs:
Vital Signs
Temp Pulse Resp BP Pulse Ox
97.7 F 67 16 135/74 99
04/11/25 07:29 04/11/25 07:43 04/11/25 07:29 04/11/25 07:43 04/11/25 08:33
I&O
04/10/25 04/11/25 04/12/25
06:59 06:59 06:59
Intake Total 240 / 240
Balance 240 / 240
--- NOTE | 2025-04-11 10:35 | CM ---
Addendum entered by Erika Espinoza 04/11/25 13:35:
patient discharge today
PT/OT no needs
PLAN: Home, no needs
family to transport
Original Note:
Patient seen at bedside
IA completed
MADSEN form explained & signed. In chart
Patient lives alone in a [place], states daughter stays at times with her, 0 HAM
PLOF: Independent
DME: dariela William
Denies vn/rehab
PCP: Dr. Snell
Pharmacy: [facility], [place]
PLAN: anticipate home when stable, CM to follow for needs
[2025-04-11 11:02] VITALS: BP 138/78
[2025-04-11 14:33] VITALS: BP 140/76
--- NOTE | 2025-04-11 15:41 | W.DCSUMMARY ---
Discharge Summary
Discharge Data
Date of Admission: 04/09/25
Date of Discharge: 04/11/25
-
Pending Results: No
Hospital Course
84 years old female presented with syncopal episode. Patient was gardening when she felt lightheadedness and passed out. She had right-sided facial bruising. In the emergency room, she had imaging studies of the neck and head that did not show
acute findings. Urine test was clear and she did not have metabolic abnormalities on blood work. Patient was evaluated by woodworking bench carpenter. EKG showed normal sinus rhythm. Serial troponin was negative. Patient had history of palpitation and was
following with woodworking bench carpenter for heart monitoring. Monitor was removed by woodworking bench carpenter for review. She did not have fever or leukocytosis. Echocardiogram showed normal left ventricular ejection fraction around 68%, no regional wall motion
abnormalities, stage II diastolic dysfunction. Community Health Outreach Worker recommended outpatient follow-up. Patient did not have orthostatic hypotension in the hospital. She was evaluated by physical therapy. Patient remained hemodynamically stable. Patient
was discharged home in stable condition.
Discharge Plan
-
Patient Disposition: Home (Routine Discharge)
Discharge Diagnosis/Procedures: Syncope
You are seen by woodworking bench carpenter. child monitor in the hospital and echocardiogram did not show acute findings.
Cardiology will follow-up in outpatient setting.
Diet: As tolerated
Referrals:
Jose Luis Snell MD [Family Provider, Family Practice]
Sherri Barnett PA-C [Specified Professional Personl, Cardiology] - 05/17/25 9:00 am
Referral Note: You have a followup appointment with Dr Santos's physician marketing operations assistant Sherri at the [place] office. Please call if questions.
Prescriptions:
Continued
ascorbic acid (vitamin C) [Vitamin C] 1,000 mg Tablet
1,000 mg PO DAILY
Lactobacillus acidophilus Tablet
1 tab PO DAILY
cranberry 500 mg Capsule
30,000 mg PO DAILY
valsartan 80 mg Tablet
80 mg PO DAILY
omeprazole 20 mg Capsule,Delayed Release(Dr/Ec)
20 mg PO DAILY
sertraline 50 mg Tablet
50 mg PO DAILY
coenzyme Q10 [Co Q-10] 100 mg Capsule
100 mg PO DAILY
vitamin M80-[id number] acid 1,000-400 mcg Tablet, Sublingual
1 tab SUBLINGUAL DAILY
turmeric 400 mg Capsule
400 mg PO DAILY
Vitamin D3
1 tab PO DAILY
Discharge Orders:
Discharge Patient (As Directed); Ordered 04/11/25
Ordered By: Edis Dennis
Discharge Date and Time
Print Language: ETHIOPIAN
== END 2025-04-11 16:34 | disposition home or self-care (01) ==
LOC: 3 WEST ACU 21:57
PROVIDERS: Physician Assistant; ADMITTING PHYSICIAN Internal Medicine; ATTENDING PHYSICIAN Internal Medicine; CONSULT PHYSICIAN Internal Medicine Cardiovascular Disease; EMERGENCY PHYSICIAN Emergency Medicine; FAMILY PHYSICIAN Family Medicine
DX: R55 Syncope and collapse (principal); S00.81XA Abrasion of other part of head, initial encounter; S00.83XA Contusion of other part of head, initial encounter; R42 Dizziness and giddiness; R00.2 Palpitations; W18.39XA Other fall on same level, initial encounter; Y93.H2 Activity, gardening and landscaping; Y92.007 Garden or yard of unspecified non-institutional (private) residence as the place of occurrence of the external cause; E04.1 Nontoxic single thyroid nodule; I48.0 Paroxysmal atrial fibrillation; I12.9 Hypertensive chronic kidney disease with stage 1 through stage 4 chronic kidney disease, or unspecified chronic kidney disease; R53.83 Other fatigue; G31.9 Degenerative disease of nervous system, unspecified; M25.78 Osteophyte, vertebrae; M50.30 Other cervical disc degeneration, unspecified cervical region; R07.9 Chest pain, unspecified; R00.1 Bradycardia, unspecified; K21.9 Gastro-esophageal reflux disease without esophagitis; I08.3 Combined rheumatic disorders of mitral, aortic and tricuspid valves; E78.00 Pure hypercholesterolemia, unspecified; F32.A Depression, unspecified; I70.0 Atherosclerosis of aorta; N18.31 Chronic kidney disease, stage 3a; I73.00 Raynaud's syndrome without gangrene; I71.40 Abdominal aortic aneurysm, without rupture, unspecified; Z90.49 Acquired absence of other specified parts of digestive tract; Z88.0 Allergy status to penicillin; Z88.2 Allergy status to sulfonamides; Z88.8 Allergy status to other drugs, medicaments and biological substances; Z90.710 Acquired absence of both cervix and uterus
CPT/HCPCS: 70450; 71046; 72125; 80048; 80053; 81003; 81015; 83735; 84443; 84484; 85025; 85027; 87086; 93005; 93306; 97162; 97166; 99285; G0378

== ENCOUNTER 2025-05-03 11:36 | Outpatient (RCR) | payer OTHER, SELFPAY | END 2025-05-04 07:34 | disposition home or self-care (01) | LOC: RPT 11:36 | PROVIDERS: ATTENDING PHYSICIAN Family Medicine | DX: R26.89 Other abnormalities of gait and mobility (principal); Z73.6 Limitation of activities due to disability; R42 Dizziness and giddiness; R53.83 Other fatigue; Z91.81 History of falling | CPT/HCPCS: 97110; 97112; 97164; 97530 ==

== ENCOUNTER 2025-05-04 07:01 | Outpatient (RCR) | payer SELFPAY | END 2025-05-04 23:59 | disposition home or self-care (01) | LOC: ROT 07:01 | PROVIDERS: ATTENDING PHYSICIAN Family Medicine | DX: Z02.4 Encounter for examination for driving license (principal) ==

== ENCOUNTER → 2025-05-22 14:36 | Outpatient (REF) | payer OTHER, SELFPAY | LOC: MRI 3T 14:36 | PROVIDERS: ATTENDING PHYSICIAN Family Medicine | DX: R53.83 Other fatigue (principal); R41.3 Other amnesia; F03.A0 Unspecified dementia, mild, without behavioral disturbance, psychotic disturbance, mood disturbance, and anxiety; R53.1 Weakness; R26.9 Unspecified abnormalities of gait and mobility | CPT/HCPCS: 70551 ==